=== PATIENT | female | born 1995 | race Caucasian/White ===

== ENCOUNTER 2021-02-13 06:21 | Inpatient (IN) | payer OTHER ==
[~2021-02-13] VITALS: Ht 160 cm; Wt 104.1 kg
[2021-02-13 06:41] VITALS: BP 120/73
[2021-02-13] MEDS ORDERED: SODIUM CITRATE/CITRIC ACID 30 ML UDC PO PRN (08:00)
[2021-02-13] MEDS ORDERED: LACTATED RINGERS 1,000 ML IV SCH (08:00)
[2021-02-13] MEDS ORDERED: OXYTOCIN 30U/ 0.9% NaCL 500ML 500 ML IV ONE (08:00)
[2021-02-13] MEDS ORDERED: ONDANSETRON 2MG/ML, 2ML IVPush PRN (08:00)
[2021-02-13] MEDS ORDERED: TERBUTALINE 1 MG/ML, 1ML SQ PRN (08:00)
[2021-02-13] MEDS ORDERED: LACTATED RINGERS 1,000 ML IVBOLUS PRN (08:00)
[2021-02-13] MEDS ORDERED: CALCIUM CARBONATE 500 MG TAB.CHEW PO PRN (08:00)
[2021-02-13] MEDS ORDERED: D5%-LACTATED RINGERS 1,000 ML IV SCH (08:00)
[2021-02-13] MEDS ORDERED: ALUMINUM/MAG/SIMETHICONE 30 ML UDC PO PRN (08:00)
[2021-02-13] MEDS ORDERED: FENTANYL/BUPIV./NS/PF 250 ML EPIDCONT SCH (08:00)
[2021-02-13] MEDS ORDERED: FENTANYL PF 100 MCG/2ML IVPush PRN (08:00)
[2021-02-13] MEDS ORDERED: METOCLOPRAMIDE 5 MG/ML, 2ML IVPush PRN (08:00)
[2021-02-13] MEDS ORDERED: TERBUTALINE 1 MG/ML, 1ML IVPush PRN (08:00)
[2021-02-13] MEDS ORDERED: OXYTOCIN 30U/ 0.9% NaCL 500ML 500 ML IV PRN (08:00)
[2021-02-13 08:21] LABS: MEAN CORPUSCULAR HEMOGLOBIN 28.8 pg (27.0-34.8); MEAN CORPUSCULAR HGB CONC 33.8 g/dL (32.4-35.8); MEAN PLATELET VOLUME 9.6 fL (7.4-10.4); PLATELET COUNT 227 x10^3/uL (130-400); RED BLOOD COUNT 4.47 x10^6/uL (3.82-5.3); RED CELL DISTRIBUTION WIDTH 14.4 % (9.6-15.2)
[2021-02-13 09:06] LABS: <PLATELET ESTIMATE> ADEQUATE; <PLT MORPHOLOGY> NORMAL PLT MORPH; <RBC MORPHOLOGY> NORMAL; BAND#(MANUAL) 1.32 x10^3/uL; BANDS%(MANUAL) 7 % (0-7); EOS#(MANUAL) 0.19 x10^3/uL (0.0-0.4); EOS% (MANUAL) 1 % (1-7); LYMPHS% (MANUAL) 8 % (22-44); MONOS#(MANUAL) 0.56 x10^3/uL (0.3-2.7); MONOS% (MANUAL) 3 % (2-9); SEG#(MANUAL) 15.23 x10^3/uL (1.8-6.8); SEGS% (MANUAL) 81 % (42-75)
[2021-02-13] MEDS ORDERED: MISOPROSTOL 200 MCG TABLET ONE (10:32)
[2021-02-13] MEDS ORDERED: NEWBORN KIT ONE ×2 (10:32→22:55)
[2021-02-13] MEDS ORDERED: LIDOCAINE 1%, 20ML ONE (10:32)
[2021-02-13 10:54] VITALS: BP 131/73
[2021-02-13 16:37] VITALS: BP 118/56
[2021-02-13] MEDS ORDERED: SODIUM CITRATE/CITRIC ACID 15 ML UDC ONE (21:39)
[2021-02-13] MEDS ORDERED: CEFAZOLIN 1,000 MG ONE (21:48)
[2021-02-13] MEDS ORDERED: OXYTOCIN 10 UNITS/ML, 1ML ONE (21:48)
[2021-02-13] MEDS ORDERED: ONDANSETRON 2MG/ML, 2ML ONE (21:48)
[2021-02-13] MEDS ORDERED: HYDROmorphone 2 MG/ML, 1ML ONE (21:48)
[2021-02-13] MEDS ORDERED: FENTANYL PF 100 MCG/2ML ONE (21:48)
[2021-02-13] MEDS ORDERED: SODIUM CITRATE/CITRIC ACID 30 ML UDC PO ONE (22:00)
[2021-02-13] MEDS ORDERED: AZITHROMYCIN 500 MG in SODIUM CHLORIDE 0.9% 250 ML IV ONE (22:00)
[2021-02-13] MEDS ORDERED: LACTATED RINGERS 1,000 ML IVBOLUS ONE (22:00)
[2021-02-13] MEDS ORDERED: METOCLOPRAMIDE 5 MG/ML, 2ML IV ONE (22:00)
[2021-02-13] MEDS: KETOROLAC 30 MG/1 ML IV SCH (23:00)
[2021-02-13] MEDS ORDERED: KETOROLAC 30 MG/1 ML ONE (23:10)
[2021-02-13] MEDS ORDERED: OXYcodone IR 5MG TABLET PO PRN ×2 (23:30)
[2021-02-13] MEDS ORDERED: ONDANSETRON 2MG/ML, 2ML IV PRN (23:30)
[2021-02-13] MEDS: LACTATED RINGERS 1,000 ML IV SCH (23:30)
[2021-02-13] MEDS: OXYTOCIN 30U/ 0.9% NaCL 500ML 500 ML IV SCH (23:30)
[2021-02-13] MEDS ORDERED: MISOPROSTOL 200 MCG TABLET PR PRN (23:30)
[2021-02-13] MEDS ORDERED: SIMETHICONE 80 MG CHEW TAB PO PRN (23:30)
[2021-02-13] MEDS ORDERED: METHYLERGONOVINE 0.2 MG/ML IM PRN (23:30)
[2021-02-13] MEDS ORDERED: TRANEXAMIC ACID 100 MG/ML, 10ML IV ONE (23:30)
[2021-02-14] MEDS ORDERED: PROMETHAZINE 25 MG/ML, 1ML ONE (00:14)
[2021-02-14] MEDS: LACTATED RINGERS 1,000 ML IV SCH ×6 (00:15→23:31)
[2021-02-14] MEDS ORDERED: HYDROmorphone 1 MG/ML, 1ML INJ IVPush PRN (00:30)
[2021-02-14] MEDS ORDERED: MEPERIDINE/PF 25MG/0.5ML IVPush PRN (00:30)
[2021-02-14] MEDS ORDERED: HYDROcodone/APAP 7.5-325MG/15ML UDC PO PRN (00:30)
[2021-02-14] MEDS ORDERED: PROMETHAZINE 25 MG/ML, 1ML IVPush PRN (00:30)
[2021-02-14] MEDS ORDERED: FENTANYL PF 100 MCG/2ML IV PRN (00:30)
[2021-02-14 01:15] VITALS: BP 102/67
[2021-02-14 04:30] VITALS: BP 106/66
[2021-02-14] MEDS: KETOROLAC 30 MG/1 ML IV SCH ×4 (05:23→23:53)
[2021-02-14 06:47] LABS: MEAN CORPUSCULAR HEMOGLOBIN 28.8 pg (27.0-34.8); MEAN CORPUSCULAR HGB CONC 33.5 g/dL (32.4-35.8); MEAN PLATELET VOLUME 9.4 fL (7.4-10.4); PLATELET COUNT 216 x10^3/uL (130-400); RED BLOOD COUNT 3.72 x10^6/uL (3.82-5.3); RED CELL DISTRIBUTION WIDTH 14.4 % (9.6-15.2)
[2021-02-14 07:20] VITALS: BP 95/68
[2021-02-14 07:26] LABS: BAND#(MANUAL) 2.04 x10^3/uL; BANDS%(MANUAL) 9 % (0-7); LYMPH#(MANUAL) 2.27 x10^3/uL (1-3.4); LYMPHS% (MANUAL) 10 % (22-44); MONOS#(MANUAL) 0.91 x10^3/uL (0.3-2.7); MONOS% (MANUAL) 4 % (2-9); SEG#(MANUAL) 17.48 x10^3/uL (1.8-6.8); SEGS% (MANUAL) 77 % (42-75)
[2021-02-14 07:27] LABS: <PLATELET ESTIMATE> ADEQUATE; <PLT MORPHOLOGY> NORMAL PLT MORPH; <RBC MORPHOLOGY> NORMAL
[2021-02-14] MEDS: DOCUSATE 100 MG CAPSULE PO PRN ×2 (07:47→23:53)
[2021-02-14] MEDS: PRENATAL VIT/IRON/FA 1 EACH TABLET PO SCH (07:47)
[2021-02-14 09:20] VITALS: BP 137/82
[2021-02-14] MEDS: OXYTOCIN 30U/ 0.9% NaCL 500ML 500 ML IV SCH ×2 (09:30→21:08)
[2021-02-14 16:15] VITALS: BP 111/75
[2021-02-14 21:20] VITALS: BP 137/82
[2021-02-15] MEDS: OXYTOCIN 30U/ 0.9% NaCL 500ML 500 ML IV SCH ×2 (05:30→15:30)
[2021-02-15] MEDS: LACTATED RINGERS 1,000 ML IV SCH ×5 (05:30→23:39)
[2021-02-15] MEDS: KETOROLAC 30 MG/1 ML IV SCH ×3 (06:00→17:16)
[2021-02-15 07:30] VITALS: BP 122/84
[2021-02-15] MEDS: DOCUSATE 100 MG CAPSULE PO PRN (09:00)
[2021-02-15] MEDS: PRENATAL VIT/IRON/FA 1 EACH TABLET PO SCH (09:00)
[2021-02-15 19:30] VITALS: BP 119/79
[2021-02-16] MEDS: IBUPROFEN 800 MG TABLET PO PRN ×2 (00:55→09:46)
[2021-02-16] MEDS: LACTATED RINGERS 1,000 ML IV SCH ×2 (01:34→07:30)
[2021-02-16] MEDS: OXYTOCIN 30U/ 0.9% NaCL 500ML 500 ML IV SCH (01:35)
[2021-02-16 07:46] VITALS: BP 137/83
[2021-02-16] MEDS ORDERED: DOCU-131 PO (08:52)
[2021-02-16] MEDS ORDERED: OXYC5TAB98 PO (08:52)
[2021-02-16] MEDS ORDERED: IBUP-1223 PO (08:52)
[2021-02-16] MEDS: PRENATAL VIT/IRON/FA 1 EACH TABLET PO SCH (09:00)
[2021-02-16] MEDS: DOCUSATE 100 MG CAPSULE PO PRN (09:46)
== END 2021-02-16 11:55 | disposition home or self-care (01) | DRG 788 ==
LOC: LDOP 06:21 → LDIP 07:44 → 2NW 02-14 00:58
PROVIDERS: ADMIT Obstetrics & Gynecology; ATTEND Obstetrics & Gynecology
PROC: 10D00Z1 Extraction of Products of Conception, Low, Open Approach (ICD-10-PCS; principal; 2021-02-13)
PROC: 3E0234Z Introduction of Serum, Toxoid and Vaccine into Muscle, Percutaneous Approach (ICD-10-PCS; 2021-02-14)
DX: O62.0 Primary inadequate contractions (principal); Z37.0 Single live birth; Z3A.40 40 weeks gestation of pregnancy; Z20.822 Contact with and (suspected) exposure to COVID-19
CPT/HCPCS: 36415; 85025; 85461; 86592; 86850; 86900; 87635; G0378; J0690; J1170; J1885; J2405; J2790; J3010; J2590; J2765; J7120